=== PATIENT | male | born 1960 | race Caucasian/White ===

== ENCOUNTER 2016-10-11 16:40 | Emergency (ER) | payer OTHER ==
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
[2016-10-11 23:25] VITALS: BP 162/98
== END 2016-10-11 23:25 | disposition home or self-care (01) ==
LOC: ED 16:40
DX: R51 Headache (principal); M43.6 Torticollis; I10 Essential (primary) hypertension; Z87.891 Personal history of nicotine dependence; V49.59XA Passenger injured in collision with other motor vehicles in traffic accident, initial encounter; Y93.9 Activity, unspecified; Y92.9 Unspecified place or not applicable; Y99.9 Unspecified external cause status
CPT/HCPCS: 70450; 71250; 99283